=== PATIENT | male | born 1950 | race Hispanic/Latino ===

== ENCOUNTER 2023-12-23 12:23 | Inpatient (IN) | payer MEDICARE, OTHER ==
[~2023-12-23] VITALS: Ht 172.7 cm; Wt 81.4 kg
[2023-12-23 17:03] LABS: BASOPHILS # (AUTO) 0.02 K/uL (0.00-0.20); BASOPHILS % (AUTO) 0.3 % (0.0-5.0); EOSINOPHILS # (AUTO) 0.05 K/uL (0.00-0.70); EOSINOPHILS % (AUTO) 0.6 % (0.0-8.0); HEMATOCRIT 37.9 % (42-54); IMMATURE GRANULOCYTE ABSOLUTE 0.03 K/uL (0-1); LYMPHOCYTES # (AUTO) 2.3 K/uL (1.0-4.8); LYMPHOCYTES % (AUTO) 29.9 % (21.0-51.0); MEAN CORPUSCULAR HEMOGLOBIN 29.6 pg (27.0-33.0); MEAN CORPUSCULAR HGB CONC 33.2 g/dL (32.0-36.0); MONOCYTES # (AUTO) 0.6 K/uL (0.1-1.0); MONOCYTES % (AUTO) 7.2 % (3.0-13.0); NEUTROPHILS # (AUTO) 4.8 K/uL (1.8-7.7); NEUTROPHILS % (AUTO) 61.6 % (40.0-77.0); PLATELET COUNT (AUTO) 312 K/uL (130-400); RED BLOOD CELL COUNT(AUTO) 4.26 MIL/uL (4.50-6.20); RED CELL DISTRIBUTION WIDTH 13.5 % (11.0-15.5); WHITE BLOOD COUNT (AUTO) 7.8 K/uL (4.8-10.8)
[2023-12-23 17:15] LABS: CREATININE 1.5 mg/dL (0.5-1.3); POTASSIUM 3.8 mmol/L (3.5-5.1)
[2023-12-23 17:20] LABS: ALBUMIN 3.2 g/dL (3.5-5.0); BILIRUBIN,TOTAL 0.4 mg/dL (0.2-1.0); TOTAL PROTEIN, SERUM 7.9 g/dL (6.0-8.3)
[2023-12-23] MEDS: ZOSYN 3.375GM +NS 50ML IV ONE (19:02)
[2023-12-23] MEDS: VANCOMYCIN KIT 1 GM/250 ML IV.KIT IV ONE (19:03)
[2023-12-23] MEDS ORDERED: ACETAMINOPHEN WITH CODEINE 1 TAB TAB PO PRN (21:30)
[2023-12-23] MEDS ORDERED: MORPHINE 2 MG SYG IV PRN (21:30)
[2023-12-23] MEDS ORDERED: VANCOMYCIN PROTOCOL PER PHARMACY IV PRN (21:30)
[2023-12-23] MEDS ORDERED: ACETAMINOPHEN 325 MG TAB PO PRN ×2 (21:30)
[2023-12-23] MEDS ORDERED: ONDANSETRON 4MG INJ IV PRN (21:30)
[2023-12-23] MEDS: 0.9%NACL 1000ML 1,000 ML IV SCH (21:32)
[2023-12-23 21:51] LABS: HEMOGLOBIN A1C 8.4 % (4.0-6.0)
[2023-12-23] MEDS ORDERED: LIRA0.6P3 SQ (22:03)
[2023-12-23] MEDS ORDERED: FURO40TA5 PO (22:03)
[2023-12-23] MEDS ORDERED: INSLAN SQ (22:03)
[2023-12-23] MEDS ORDERED: GABA-529 PO (22:03)
[2023-12-23] MEDS ORDERED: TAMS-1 PO (22:03)
[2023-12-23] MEDS ORDERED: ATOR-2 PO (22:03)
[2023-12-23] MEDS ORDERED: APIX5TAB PO (22:03)
[2023-12-23] MEDS ORDERED: METO-408 PO (22:03)
[2023-12-23] MEDS ORDERED: NITR0.4T50 SL (22:03)
[2023-12-23] MEDS ORDERED: PANT40TA54 PO (22:03)
[2023-12-23] MEDS ORDERED: LOSA50TA64 PO (22:03)
[2023-12-24] MEDS: ZOSYN 3.375GM+NS 50ML 50 ML IV SCH (04:56)
[2023-12-24] MEDS ORDERED: VANCOMYCIN 500MG+NS 100ML 100 ML IV SCH (06:00)
[2023-12-24 06:36] LABS: BASOPHILS # (AUTO) 0.02 K/uL (0.00-0.20); BASOPHILS % (AUTO) 0.3 % (0.0-5.0); EOSINOPHILS # (AUTO) 0.09 K/uL (0.00-0.70); EOSINOPHILS % (AUTO) 1.4 % (0.0-8.0); HEMATOCRIT 34.7 % (42-54); IMMATURE GRANULOCYTE ABSOLUTE 0.02 K/uL (0-1); LYMPHOCYTES # (AUTO) 1.7 K/uL (1.0-4.8); LYMPHOCYTES % (AUTO) 26.5 % (21.0-51.0); MEAN CORPUSCULAR HEMOGLOBIN 28.9 pg (27.0-33.0); MEAN CORPUSCULAR HGB CONC 33.7 g/dL (32.0-36.0); MEAN CORPUSCULAR VOLUME 85.7 fL (79-99); MONOCYTES # (AUTO) 0.5 K/uL (0.1-1.0); MONOCYTES % (AUTO) 7.9 % (3.0-13.0); NEUTROPHILS # (AUTO) 4.1 K/uL (1.8-7.7); NEUTROPHILS % (AUTO) 63.6 % (40.0-77.0); PLATELET COUNT (AUTO) 282 K/uL (130-400); RED BLOOD CELL COUNT(AUTO) 4.05 MIL/uL (4.50-6.20); RED CELL DISTRIBUTION WIDTH 13.4 % (11.0-15.5); WHITE BLOOD COUNT (AUTO) 6.5 K/uL (4.8-10.8)
[2023-12-24] MEDS: VANCOMYCIN 500MG+NS 100ML 100 ML IV SCH (06:49)
[2023-12-24 06:53] LABS: ALBUMIN 2.6 g/dL (3.5-5.0); BILIRUBIN,TOTAL 0.5 mg/dL (0.2-1.0); CREATININE 1.3 mg/dL (0.5-1.3); POTASSIUM 3.5 mmol/L (3.5-5.1); TOTAL PROTEIN, SERUM 6.8 g/dL (6.0-8.3)
[2023-12-24] MEDS ORDERED: INSULIN HUMULIN R 100 UNIT/ML 3ML SQ SCH (07:30)
[2023-12-24 07:44] LABS: ERYTHROCYTE SEDIMENTATION RATE 68 MM/HR (0-20)
[2023-12-24 07:58] VITALS: BP 148/74; PULSE 86; RESP 18
[2023-12-24 08:07] VITALS: O2SAT 98
[2023-12-24] MEDS: LOSARTAN 50 MG TABLET PO SCH (08:48)
[2023-12-24] MEDS: METOPROLOL SUCCINATE 25 MG TAB.SR.24H PO SCH (08:48)
[2023-12-24] MEDS: FAMOTIDINE 20MG VIAL IV SCH (08:48)
[2023-12-24] MEDS: APIXABAN 5 MG TABLET PO SCH (08:49)
[2023-12-24] MEDS ORDERED: NON-FORMULARY MEDICATION 1 EACH (Atorvastatin Calcium 80 MG) PO SCH (09:00)
[2023-12-24] MEDS ORDERED: HEPARIN 5,000 UNIT VIAL SQ SCH (09:00)
[2023-12-24 11:03] VITALS: BP 152/61; PULSE 68; RESP 18
[2023-12-24] MEDS ORDERED: 0.9% NACL 500ML IV.SOLN 500 ML IV SCH (15:00)
[2023-12-24] MEDS: ASPIRIN 81 MG EC TAB PO SCH (15:38)
[2023-12-24 16:00] VITALS: BP 149/72; PULSE 69; RESP 18
[2023-12-24 20:35] VITALS: BP 144/66; PULSE 76; RESP 19
[2023-12-24 20:36] VITALS: O2SAT 98
[2023-12-24] MEDS: TAMSULOSIN HCL 0.4 MG CAP.ER.24H PO SCH (21:10)
[2023-12-24] MEDS: ATORVASTATIN 40 MG TABLET PO SCH (21:10)
[2023-12-24] MEDS: INSULIN HUMULIN R 100 UNIT/ML 3ML SQ SCH ×2 (21:11)
[2023-12-24] MEDS: ACETAMINOPHEN WITH CODEINE 1 TAB TAB PO PRN (22:19)
[2023-12-25] VITALS (15 sets, daily range): BP systolic 110–169; BP diastolic 56–81; PULSE 59–87; RESP 18–19; O2SAT 98
[2023-12-25 05:44] LABS: BASOPHILS # (AUTO) 0.02 K/uL (0.00-0.20); BASOPHILS % (AUTO) 0.3 % (0.0-5.0); EOSINOPHILS # (AUTO) 0.16 K/uL (0.00-0.70); EOSINOPHILS % (AUTO) 2.2 % (0.0-8.0); HEMATOCRIT 35.5 % (42-54); IMMATURE GRANULOCYTE ABSOLUTE 0.03 K/uL (0-1); LYMPHOCYTES # (AUTO) 1.6 K/uL (1.0-4.8); LYMPHOCYTES % (AUTO) 22.4 % (21.0-51.0); MEAN CORPUSCULAR HEMOGLOBIN 28.9 pg (27.0-33.0); MEAN CORPUSCULAR HGB CONC 31.8 g/dL (32.0-36.0); MEAN CORPUSCULAR VOLUME 90.8 fL (79-99); MONOCYTES # (AUTO) 0.6 K/uL (0.1-1.0); MONOCYTES % (AUTO) 7.7 % (3.0-13.0); NEUTROPHILS # (AUTO) 4.9 K/uL (1.8-7.7); PLATELET COUNT (AUTO) 286 K/uL (130-400); RED BLOOD CELL COUNT(AUTO) 3.91 MIL/uL (4.50-6.20); RED CELL DISTRIBUTION WIDTH 13.3 % (11.0-15.5); WHITE BLOOD COUNT (AUTO) 7.3 K/uL (4.8-10.8)
[2023-12-25 06:00] LABS: ALBUMIN 2.7 g/dL (3.5-5.0); BILIRUBIN,TOTAL 0.7 mg/dL (0.2-1.0); CREATININE 1.3 mg/dL (0.5-1.3); MAGNESIUM 1.8 mg/dL (1.80-2.40); POTASSIUM 3.7 mmol/L (3.5-5.1); TOTAL PROTEIN, SERUM 6.9 g/dL (6.0-8.3); VANCOMYCIN TROUGH 10.1 UG/ML (10.0-20.0)
[2023-12-25 06:01] LABS: INR 1.04 (0.85-1.15); PROTHROMBIN TIME 11.2 SEC (9.6-11.6)
[2023-12-25 06:02] LABS: PARTIAL THROMBOPLASTIN TIME 29.3 SEC (26.3-35.5)
[2023-12-25] MEDS ORDERED: HEPARIN 10,000 UNIT/10ML (1,000 UNIT/ML) VIAL ONE ×2 (07:34→10:14)
[2023-12-25] MEDS ORDERED: NITROGLYCERIN 50MG VIAL ONE ×2 (07:34→09:37)
[2023-12-25] MEDS ORDERED: LIDOCAINE HCL 400MG/20ML VIAL ONE (07:34)
[2023-12-25] MEDS ORDERED: IODIXANOL 320 MG/ML 100 ML VIAL ONE (07:35)
[2023-12-25] MEDS ORDERED: NICARDIPINE 25MG INJ IV ONE (08:02)
[2023-12-25] MEDS ORDERED: FENTANYL CITRATE PF 50 MCG/1 ML 2ML VIAL ONE (08:04)
[2023-12-25] MEDS ORDERED: MIDAZOLAM HCL 1 MG/ML 2ML VIAL ONE (08:05)
[2023-12-25] MEDS ORDERED: CLOPIDOGREL 300MG TAB ONE (09:14)
[2023-12-25] MEDS ORDERED: ASPIRIN 325MG EC TAB PO ONE (09:14)
[2023-12-25] MEDS ORDERED: HYDRALAZINE 20MG/ML VIAL ONE (11:12)
[2023-12-25] MEDS: 0.9%NACL 1000ML 1,000 ML IV SCH (11:30)
[2023-12-25] MEDS: APIXABAN 5 MG TABLET PO SCH (20:25)
[2023-12-26] VITALS (8 sets, daily range): BP systolic 111–157; BP diastolic 64–77; PULSE 64–88; RESP 18–19; O2SAT 98
[2023-12-26 06:01] LABS: BASOPHILS # (AUTO) 0.03 K/uL (0.00-0.20); BASOPHILS % (AUTO) 0.5 % (0.0-5.0); EOSINOPHILS # (AUTO) 0.12 K/uL (0.00-0.70); EOSINOPHILS % (AUTO) 2.2 % (0.0-8.0); IMMATURE GRANULOCYTE ABSOLUTE 0.02 K/uL (0-1); LYMPHOCYTES # (AUTO) 0.9 K/uL (1.0-4.8); LYMPHOCYTES % (AUTO) 15.8 % (21.0-51.0); MEAN CORPUSCULAR HEMOGLOBIN 27.9 pg (27.0-33.0); MEAN CORPUSCULAR HGB CONC 31.9 g/dL (32.0-36.0); MEAN CORPUSCULAR VOLUME 87.4 fL (79-99); MONOCYTES # (AUTO) 0.5 K/uL (0.1-1.0); MONOCYTES % (AUTO) 9.7 % (3.0-13.0); NEUTROPHILS % (AUTO) 71.4 % (40.0-77.0); PLATELET COUNT (AUTO) 263 K/uL (130-400); RED BLOOD CELL COUNT(AUTO) 3.66 MIL/uL (4.50-6.20); RED CELL DISTRIBUTION WIDTH 13.5 % (11.0-15.5); WHITE BLOOD COUNT (AUTO) 5.6 K/uL (4.8-10.8)
[2023-12-26 06:18] LABS: ALBUMIN 2.4 g/dL (3.5-5.0); BILIRUBIN,TOTAL 0.6 mg/dL (0.2-1.0); CREATININE 1.1 mg/dL (0.5-1.3); MAGNESIUM 1.8 mg/dL (1.80-2.40); POTASSIUM 3.7 mmol/L (3.5-5.1); TOTAL PROTEIN, SERUM 6.4 g/dL (6.0-8.3)
[2023-12-26] MEDS ORDERED: CLOPIDOGREL 75MG TAB PO SCH (09:00)
[2023-12-26] MEDS: CLOPIDOGREL 75MG TAB PO SCH (09:46)
[2023-12-26] MEDS: BENZOCAINE/MENTH/CETYLPYRD CL 1 EACH LOZENGE MM PRN (15:39)
[2023-12-27 02:11] VITALS: BP 129/57; PULSE 67; RESP 18
[2023-12-27 03:54] VITALS: BP 129/70; PULSE 70; RESP 17
[2023-12-27 05:36] LABS: BASOPHILS # (AUTO) 0.03 K/uL (0.00-0.20); BASOPHILS % (AUTO) 0.5 % (0.0-5.0); EOSINOPHILS # (AUTO) 0.23 K/uL (0.00-0.70); EOSINOPHILS % (AUTO) 3.9 % (0.0-8.0); IMMATURE GRANULOCYTE ABSOLUTE 0.03 K/uL (0-1); LYMPHOCYTES # (AUTO) 1.9 K/uL (1.0-4.8); LYMPHOCYTES % (AUTO) 32.2 % (21.0-51.0); MEAN CORPUSCULAR HEMOGLOBIN 28.7 pg (27.0-33.0); MEAN CORPUSCULAR VOLUME 89.6 fL (79-99); MONOCYTES # (AUTO) 0.7 K/uL (0.1-1.0); MONOCYTES % (AUTO) 11.9 % (3.0-13.0); PLATELET COUNT (AUTO) 249 K/uL (130-400); RED BLOOD CELL COUNT(AUTO) 3.35 MIL/uL (4.50-6.20); RED CELL DISTRIBUTION WIDTH 13.3 % (11.0-15.5)
[2023-12-27 05:50] LABS: ALBUMIN 2.3 g/dL (3.5-5.0); BILIRUBIN,TOTAL 0.5 mg/dL (0.2-1.0); CREATININE 1.2 mg/dL (0.5-1.3); MAGNESIUM 1.7 mg/dL (1.80-2.40); POTASSIUM 3.3 mmol/L (3.5-5.1); TOTAL PROTEIN, SERUM 6.1 g/dL (6.0-8.3)
[2023-12-27 08:00] VITALS: BP 127/67; PULSE 79; RESP 18; O2SAT 98
[2023-12-27 12:00] VITALS: BP 129/60; PULSE 71; RESP 18
[2023-12-27 15:12] LABS: INR 1.09 (0.85-1.15); PROTHROMBIN TIME 11.7 SEC (9.6-11.6)
[2023-12-27 16:00] VITALS: BP 130/65; PULSE 70; RESP 18
[2023-12-27 20:00] VITALS: BP 153/77; PULSE 85; RESP 20; O2SAT 96
[2023-12-28] VITALS (8 sets, daily range): BP systolic 120–169; BP diastolic 60–82; PULSE 64–73; RESP 16–20; O2SAT 98–99
[2023-12-28 04:59] LABS: BASOPHILS # (AUTO) 0.03 K/uL (0.00-0.20); BASOPHILS % (AUTO) 0.5 % (0.0-5.0); EOSINOPHILS # (AUTO) 0.25 K/uL (0.00-0.70); EOSINOPHILS % (AUTO) 4.1 % (0.0-8.0); IMMATURE GRANULOCYTE ABSOLUTE 0.02 K/uL (0-1); LYMPHOCYTES # (AUTO) 1.7 K/uL (1.0-4.8); LYMPHOCYTES % (AUTO) 27.7 % (21.0-51.0); MEAN CORPUSCULAR HEMOGLOBIN 28.4 pg (27.0-33.0); MONOCYTES # (AUTO) 0.7 K/uL (0.1-1.0); MONOCYTES % (AUTO) 11.6 % (3.0-13.0); NEUTROPHILS # (AUTO) 3.4 K/uL (1.8-7.7); NEUTROPHILS % (AUTO) 55.8 % (40.0-77.0); PLATELET COUNT (AUTO) 265 K/uL (130-400); RED BLOOD CELL COUNT(AUTO) 3.49 MIL/uL (4.50-6.20); RED CELL DISTRIBUTION WIDTH 13.2 % (11.0-15.5); WHITE BLOOD COUNT (AUTO) 6.1 K/uL (4.8-10.8)
[2023-12-28 05:06] LABS: INR 1.08 (0.85-1.15); PROTHROMBIN TIME 11.6 SEC (9.6-11.6)
[2023-12-28 05:18] LABS: ALBUMIN 2.4 g/dL (3.5-5.0); BILIRUBIN,TOTAL 0.4 mg/dL (0.2-1.0); CREATININE 1.3 mg/dL (0.5-1.3); MAGNESIUM 1.6 mg/dL (1.80-2.40); TOTAL PROTEIN, SERUM 6.4 g/dL (6.0-8.3)
[2023-12-28] MEDS: MAGNESIUM 2GM PREMIX 50ML 50 ML IV PRN (13:45)
[2023-12-29] VITALS (7 sets, daily range): BP systolic 136–157; BP diastolic 59–85; PULSE 63–89; RESP 16–20; O2SAT 98
[2023-12-29 09:35] LABS: CREATININE 1.4 mg/dL (0.5-1.3); MAGNESIUM 1.8 mg/dL (1.80-2.40)
[2023-12-29] MEDS: 0.9%NACL 10ML VIAL IV SCH (21:00)
[2023-12-30] VITALS (7 sets, daily range): BP systolic 109–167; BP diastolic 56–85; PULSE 68–87; RESP 16–20; O2SAT 97
[2023-12-31] VITALS (9 sets, daily range): BP systolic 139–172; BP diastolic 69–87; PULSE 69–86; RESP 16–20; O2SAT 97
[2024-01-01] VITALS: BP 154/74; PULSE 74; RESP 20
[2024-01-01 04:00] VITALS: BP 123/56; PULSE 89; RESP 20
[2024-01-01 07:45] VITALS: O2SAT 97
[2024-01-01 08:22] VITALS: BP 105/57; PULSE 92; RESP 18
[2024-01-01 09:58] LABS: BASOPHILS # (AUTO) 0.02 K/uL (0.00-0.20); BASOPHILS % (AUTO) 0.4 % (0.0-5.0); EOSINOPHILS # (AUTO) 0.11 K/uL (0.00-0.70); EOSINOPHILS % (AUTO) 2.3 % (0.0-8.0); HEMATOCRIT 30.7 % (42-54); IMMATURE GRANULOCYTE ABSOLUTE 0.02 K/uL (0-1); LYMPHOCYTES # (AUTO) 0.8 K/uL (1.0-4.8); LYMPHOCYTES % (AUTO) 15.6 % (21.0-51.0); MEAN CORPUSCULAR HEMOGLOBIN 29.1 pg (27.0-33.0); MEAN CORPUSCULAR HGB CONC 33.9 g/dL (32.0-36.0); MEAN CORPUSCULAR VOLUME 85.8 fL (79-99); MONOCYTES # (AUTO) 0.2 K/uL (0.1-1.0); MONOCYTES % (AUTO) 4.6 % (3.0-13.0); NEUTROPHILS # (AUTO) 3.7 K/uL (1.8-7.7); NEUTROPHILS % (AUTO) 76.7 % (40.0-77.0); PLATELET COUNT (AUTO) 247 K/uL (130-400); RED BLOOD CELL COUNT(AUTO) 3.58 MIL/uL (4.50-6.20); RED CELL DISTRIBUTION WIDTH 13.3 % (11.0-15.5); WHITE BLOOD COUNT (AUTO) 4.8 K/uL (4.8-10.8)
[2024-01-01 10:09] LABS: CREATININE 1.3 mg/dL (0.5-1.3); MAGNESIUM 1.5 mg/dL (1.80-2.40); POTASSIUM 3.5 mmol/L (3.5-5.1)
[2024-01-01 12:36] VITALS: BP 160/74; PULSE 91; RESP 18
[2024-01-01] MEDS ORDERED: HONEY 1 APPL/ML TUBE TP SCH (15:30)
[2024-01-01] MEDS ORDERED: CLOP-31 PO (17:02)
== END 2024-01-01 16:15 | disposition home or self-care (01) | DRG 854 ==
LOC: EDH 12:23 → EDHIP 12:24 → 3DH 12-24 20:21
PROVIDERS: ADMIT Hospitalist; ATTEND Hospitalist
PROC: 047R3Z1 Dilation of Right Posterior Tibial Artery using Drug-Coated Balloon, Percutaneous Approach (ICD-10-PCS; principal; 2023-12-25)
PROC: 04FR3ZZ Fragmentation of Right Posterior Tibial Artery, Percutaneous Approach (ICD-10-PCS; 2023-12-25)
PROC: 047T3Z1 Dilation of Right Peroneal Artery using Drug-Coated Balloon, Percutaneous Approach (ICD-10-PCS; 2023-12-25)
PROC: 0JBQ0ZZ Excision of Right Foot Subcutaneous Tissue and Fascia, Open Approach (ICD-10-PCS; 2023-12-25)
PROC: B41D1ZZ Fluoroscopy of Aorta and Bilateral Lower Extremity Arteries using Low Osmolar Contrast (ICD-10-PCS; 2023-12-25)
PROC: 05HB33Z Insertion of Infusion Device into Right Basilic Vein, Percutaneous Approach (ICD-10-PCS; 2023-12-25)
DX: A41.9 Sepsis, unspecified organism (principal); D68.69 Other thrombophilia; E44.1 Mild protein-calorie malnutrition; M86.8X7 Other osteomyelitis, ankle and foot; N28.9 Disorder of kidney and ureter, unspecified; E10.69 Type 1 diabetes mellitus with other specified complication; E10.621 Type 1 diabetes mellitus with foot ulcer; L97.519 Non-pressure chronic ulcer of other part of right foot with unspecified severity; D50.9 Iron deficiency anemia, unspecified; E78.00 Pure hypercholesterolemia, unspecified; I10 Essential (primary) hypertension; I25.10 Atherosclerotic heart disease of native coronary artery without angina pectoris; I48.0 Paroxysmal atrial fibrillation; L03.031 Cellulitis of right toe; E10.65 Type 1 diabetes mellitus with hyperglycemia; N40.0 Benign prostatic hyperplasia without lower urinary tract symptoms; E10.51 Type 1 diabetes mellitus with diabetic peripheral angiopathy without gangrene; Z79.01 Long term (current) use of anticoagulants; Z79.02 Long term (current) use of antithrombotics/antiplatelets; Z79.4 Long term (current) use of insulin; Z79.82 Long term (current) use of aspirin; Z79.899 Other long term (current) drug therapy; Z83.3 Family history of diabetes mellitus; Z95.0 Presence of cardiac pacemaker; Z95.1 Presence of aortocoronary bypass graft; Z98.61 Coronary angioplasty status; Z68.27 Body mass index [BMI] 27.0-27.9, adult
CPT/HCPCS: 36415; 37228; 71045; 73620; 73660; 75716; 76376; 78315; 80048; 80053; 80202; 82550; 82948; 83036; 83605; 83735; 84145; 84484; 85025; 85347; 85610; 85651; 85730; 86140; 87040; 93005; 93306; 93356; 93923; 93925; 99156; 99157; A9503; C1760; C1769; C1893; C1894; C9772; G0378; J0360; J1644; J1815; J2250; J2543; J3010; J3370; J3475; J3490; J7030; Q9967; C1725; C1887; C2623